=== PATIENT | female | born 1965 | race African-American/Black ===

== ENCOUNTER 2024-10-01 21:43 | Inpatient (IN) | payer OTHER ==
[2024-10-01] MEDS ORDERED: Dextrose 50% Abboject 50 ML SYRINGE SLOW IVP PRN (22:23)
[2024-10-01] MEDS ORDERED: Dextrose 5% in Water 1,000 ML IV PRN (22:23)
[2024-10-01] MEDS ORDERED: Glucagon 1 MG/ML KIT IM PRN (22:23)
[2024-10-01 22:43] VITALS: BMI 40.4
[2024-10-01] MEDS: Ondansetron PF 4 MG/2 ML Vial IVP PRN (22:55)
[2024-10-02 05:50] LABS: #Basophils Less than 0.03 10x3/uL (0.0-0.2); %Basophils 0.1 % (0.0-1.0); %Eosinophils 0.4 % (0.0-10.0); %Lymphocytes 19.9 % (21.0-51.0); %Monocytes 8.2 % (0.0-10.0); %Neutrophils 71.1 % (42.0-75.0); Hematocrit 34.3 % (36.0-47.0); Hemoglobin 11.2 g/dL (12.0-16.0); Mean Corpuscular HGB CONC 32.7 g/dL (32.0-36.0); Mean Corpuscular Hemoglobin 24.8 pg (27.0-31.0); Mean Corpuscular Volume 76.1 fL (78.0-98.0); Platelet Count 237 10x3/uL (130-400); RBC Distribution Width 14.1 % (11.5-14.5); Red Blood Cell (RBC) Count 4.51 mill/uL (4.20-5.40)
[2024-10-02 06:46] LABS: Anion Gap 14 mmol/L (10-20); BUN (Urea Nitrogen) 22 mg/dL (9.8-20.1); Calc. Creatinine Clearance 106 mL/min (70-130); Calcium 9.1 mg/dL (7.8-10.44); Carbon Dioxide 23 mmol/L (23-31); Chloride 104 mmol/L (98-107); Estimated GFR 66; Glucose 143 mg/dL (80-115); Potassium 4.1 mmol/L (3.5-5.1); Sodium 137 mmol/L (136-145)
[2024-10-02] MEDS: traMADol HCl 50 MG TAB PO PRN (11:01)
[2024-10-02] MEDS ORDERED: fentaNYL PF 100 MCG/2 ML SYRINGE ONE ×2 (14:05→14:46)
[2024-10-02] MEDS ORDERED: Lidocaine 1% PF 5 ML VIAL ONE (14:05)
[2024-10-02] MEDS ORDERED: PROPOFOL 20 ML ONE (14:05)
[2024-10-02] MEDS ORDERED: Ondansetron PF 4 MG/2 ML Vial ONE (14:05)
[2024-10-02] MEDS ORDERED: CEFAZOLIN 2 GM VIAL ONE (14:19)
[2024-10-02] MEDS ORDERED: HYDROmorphone 2 MG/ML VIAL SLOW IVP PRN (16:11)
[2024-10-02] MEDS ORDERED: Promethazine HCl 25 MG/ML VIAL IM PRN (16:11)
[2024-10-02] MEDS ORDERED: PACU-Morphine 4MG/ML VIAL SLOW IVP PRN (16:11)
[2024-10-02] MEDS ORDERED: Ondansetron HCl/PF 4 MG/2 ML Vial IVP PRN (16:11)
[2024-10-02] MEDS ORDERED: diphenhydrAMINE 50 MG/ML VIAL ONE (16:53)
[2024-10-02] MEDS: Methocarbamol 500 MG TAB PO PRN (18:17)
[2024-10-02] MEDS: HYDROcodone/Acetaminophen 5/325 mg Tablet PO PRN (18:17)
[2024-10-02] MEDS: Tranexamic Acid 1,000 MG in Sodium Chloride 0.9% 250 ML 250 ML IVPB SCH (18:18)
[2024-10-02] MEDS: Aspirin 81 mg Enteric Coated Tablet PO SCH (21:18)
[2024-10-02] MEDS: CEFAZOLIN 2 GM in Sodium Chloride 0.9% 100 ML IVPB SCH ×2 (21:18→21:21)
[2024-10-03 04:39] LABS: #Basophils Less than 0.03 10x3/uL (0.0-0.2); #Eosinophils Less than 0.03 10x3/uL (0.0-0.7); %Basophils 0.1 % (0.0-1.0); %Eosinophils 0.1 % (0.0-10.0); %Lymphocytes 11.2 % (21.0-51.0); %Neutrophils 77.3 % (42.0-75.0); Hematocrit 32.4 % (36.0-47.0); Hemoglobin 10.5 g/dL (12.0-16.0); Mean Corpuscular HGB CONC 32.4 g/dL (32.0-36.0); Mean Corpuscular Hemoglobin 24.7 pg (27.0-31.0); Mean Corpuscular Volume 76.2 fL (78.0-98.0); Mean Platelet Volume 9.9 fL (7.4-10.4); Platelet Count 218 10x3/uL (130-400); RBC Distribution Width 14.2 % (11.5-14.5); Red Blood Cell (RBC) Count 4.25 mill/uL (4.20-5.40)
[2024-10-03 05:01] LABS: ALT (SGPT) 10 U/L (8-55); AST (SGOT) 17 U/L (5-34); Albumin 3.7 g/dL (3.4-4.8); Alkaline Phosphatase 58 U/L (40-110); Anion Gap 14 mmol/L (10-20); BUN (Urea Nitrogen) 14 mg/dL (9.8-20.1); Bilirubin, Total 0.5 mg/dL (0.2-1.2); Calc. Creatinine Clearance 116 mL/min (70-130); Carbon Dioxide 24 mmol/L (23-31); Chloride 105 mmol/L (98-107); Estimated GFR 74; Glucose 141 mg/dL (80-115); Potassium 3.8 mmol/L (3.5-5.1); Protein, Total 7.7 g/dL (5.8-8.1); Sodium 139 mmol/L (136-145)
[2024-10-03] MEDS: metFORMIN XR 500 MG ER.TAB PO SCH (16:03)
[2024-10-03] MEDS: Enoxaparin 40 MG (0.4 mL) SYRINGE SC SCH (21:33)
[2024-10-03] MEDS: Latanoprost 0.005% Ophth Soln 2.5 ml Bottle EA EYE SCH (21:34)
[2024-10-03] MEDS: Atorvastatin Calcium 20 MG TAB PO SCH (21:34)
[2024-10-03] MEDS: Acetaminophen 500 MG TAB PO SCH (22:18)
[2024-10-04] MEDS: Amlodipine 10 MG TAB PO SCH (09:08)
[2024-10-05] MEDS: Acetaminophen 325 MG (10.15 ML) UDCUP PO SCH (06:28)
[2024-10-05] MEDS: Acetaminophen 325 MG TAB PO SCH (11:26)
[2024-10-05] MEDS: Senokot S 8.6-50 MG TAB PO SCH (20:01)
[2024-10-06] MEDS: Polyethylene Glycol 3350 17 GM Packet PO SCH (09:30)
[2024-10-06] MEDS: Ondansetron ODT 4 MG TAB PO PRN (10:56)
[2024-10-07 09:20] VITALS: TEMP 97.9
[2024-10-07] MEDS: Ibuprofen 600 MG TAB PO SCH (09:20)
[2024-10-07] MEDS: Fleet Saline Enema 133 ML BOT PR SCH (14:59)
[2024-10-07 16:28] VITALS: BP 137/85
== END 2024-10-07 16:52 | DRG 494 ==
LOC: ERS 21:43 → SURG B 22:05
PROVIDERS: ADMIT Surgery; ATTEND Surgery
PROC: 0QSH04Z Reposition Left Tibia with Internal Fixation Device, Open Approach (ICD-10-PCS; principal; 2024-10-02)
DX: S82.142A Displaced bicondylar fracture of left tibia, initial encounter for closed fracture (principal); S83.207A Unspecified tear of unspecified meniscus, current injury, left knee, initial encounter; S82.452A Displaced comminuted fracture of shaft of left fibula, initial encounter for closed fracture; M25.462 Effusion, left knee; I10 Essential (primary) hypertension; E11.9 Type 2 diabetes mellitus without complications; Z79.84 Long term (current) use of oral hypoglycemic drugs; Z79.899 Other long term (current) drug therapy; W18.30XA Fall on same level, unspecified, initial encounter
CPT/HCPCS: 36415; 36416; 80048; 80053; 85025; C1713; J1200; J1650; J2405; J2704; J7050; Q0162